=== PATIENT | female | born 1955 | race Caucasian/White ===

== ENCOUNTER → 2019-12-06 09:41 | Outpatient (BNVA) | payer OTHER, SELFPAY | PROVIDERS: PCP Internal Medicine; Referring Provider Internal Medicine; Visit Provider Internal Medicine | DX: F11.20 Opioid dependence, uncomplicated (principal); B20 Human immunodeficiency virus [HIV] disease | CPT/HCPCS: 99212 ==

== ENCOUNTER 2020-01-06 09:47 | Outpatient (REF) | payer OTHER, SELFPAY ==
[2020-01-09 12:07] LABS: Oxymorphone Random Urine SEE ABOVE
[2020-01-11 17:26] LABS: Buprenorphine >1000 ng/mL; Norbuprenorphine 56 ng/mL
== END 2020-01-06 09:48 | disposition home or self-care (01) ==
LOC: HO.LNP 09:47
PROVIDERS: PCP Internal Medicine; Visit Provider Internal Medicine
DX: F11.20 Opioid dependence, uncomplicated (principal); B20 Human immunodeficiency virus [HIV] disease; Z79.899 Other long term (current) drug therapy
CPT/HCPCS: 80305; 80348; 80365; 99212

== ENCOUNTER 2021-10-11 09:48 | Outpatient (REF) | payer OTHER, SELFPAY ==
[2021-10-11 11:12] LABS: MANUAL DIFF FLAG NO
[2021-10-11 11:28] LABS: Basophils Percent Auto 0.3 % (0-2); Eosinophils Absolute Auto 0.4 X10*3/uL (0.0-0.4); Eosinophils Percent Auto 7.3 % (0-4); Hematocrit 37.6 % (37.0-47.0); Hemoglobin 12.8 g/dl (12.0-16.0); Imm Gran Abs Auto 0.01 X10*3/uL (0.00-0.03); Imm Gran Pct Auto 0.2 % (0.0-0.4); Lymphocytes Absolute Auto 1.2 X10*3/uL (1.2-4.9); Lymphocytes Percent Auto 20.5 % (20-40); Mean Corpuscular Hemoglobin 30.5 pg (27.0-33.0); Mean Corpuscular Volume 89.5 fL (80.0-98.0); Monocytes Absolute Auto 0.3 X10*3/uL (0.1-1.2); Monocytes Percent Auto 5.5 % (2-11); Neutrophils Percent Auto 66.2 % (45-73); Platelet Count 213 X10*3/uL (160-400); Red Cell Distribution Width 12.6 % (11.0-16.0); White Blood Count 6.1 X10*3/uL (4.8-10.8)
[2021-10-11 12:01] LABS: Alanine Aminotransferase 20 U/L (0-31); Albumin Level 4.1 g/dL (3.5-5.0); Alkaline Phosphatase 62 U/L (39-117); Aspartate Amino Transferase 22 U/L (5-31); Bilirubin Direct 0.2 mg/dL (0.0-0.5); Bilirubin Total 0.5 mg/dL (0.0-1.0); Total Protein 6.8 g/dL (6.5-8.0)
[2021-10-11 12:09] LABS: Syphilis Screen Nonreactive (Nonreactive)
[2021-10-11 12:10] LABS: Hepatitis B Surface Antigen Negative (Negative)
== END 2021-10-11 09:49 | disposition home or self-care (01) ==
LOC: HO.WFDLDS 09:48
PROVIDERS: Visit Provider Family Medicine Adult Medicine
DX: F11.20 Opioid dependence, uncomplicated (principal)
CPT/HCPCS: 36415; 80076; 85025; 86780; 87340